=== PATIENT | male | born 1970 | race Caucasian/White ===

== ENCOUNTER → 2020-12-26 | Outpatient (CLI) | payer OTHER ==
--- NOTE | 2020-12-27 04:45 | MR ---
EXAMINATION TYPE: MR knee RT wo con DATE OF EXAM: 12/26/2020 COMPARISON: None HISTORY: Right inner knee pain, locking, and swelling for 6 months. Multiplanar multiecho imaging of the right knee with no contrast. There is horizontal and vertical tear through the posterior horn of the medial meniscus. There is lar ge vertical tear through the posterior horn of the lateral meniscus. There is some mild thinning of t he anterior horn lateral meniscus. The anterior and posterior cruciate ligaments are intact. There is mild knee joint effusion. The elvie ateral ligaments are intact. There is no evidence of a fracture. I see no bony destructive process. T here are small areas of increased signal in the subchondral patella consistent with developing degene rative cyst formation. IMPRESSION: There are tears of the medial and lateral menisci as above. No fracture. No evidence of ligamentous t ear. Knee joint effusion.
== END | disposition home or self-care (01) ==
LOC: RADMRIMAIN 14:44
PROVIDERS: ATTEND Orthopaedic Surgery Sports Medicine
DX: M23.321 Other meniscus derangements, posterior horn of medial meniscus, right knee (principal); M23.351 Other meniscus derangements, posterior horn of lateral meniscus, right knee

== ENCOUNTER → 2023-01-19 | Outpatient (CLI) | payer OTHER ==
--- NOTE | 2023-01-22 13:39 | MR ---
EXAMINATION TYPE: MR knee LT wo con DATE OF EXAM: 01/19/2023 COMPARISON: None HISTORY: Left knee pain. TECHNIQUE: Multiplanar, multisequence imaging of the left knee is performed without IV contrast. 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 The overlying cartilage is intac t. There is mild hypertrophic spurring. The lateral compartment is normal with normal cartilage thick ness and signal intensity there are mild degenerative changes of the medial facet of the patellofemor al joint with loss of cartilage and subchondral changes. There is a small joint effusion. The cruciate and collateral ligaments are intact. There is a horizontal/oblique tear of the posterior and body medial and the inferior surface. The lateral meniscus is intact. Quadriceps and patellar. IMPRESSION: 1. Tear of the medial meniscus as described above. 2. small joint effusion. 3. Mild degenerative changes of the patellofemoral compartment as described above. 4. No bone contusion or fracture. 5. No ligamentous abnormalities.
== END | disposition home or self-care (01) ==
LOC: RADMRIMAIN 06:34
PROVIDERS: ATTEND Orthopaedic Surgery Sports Medicine
DX: S83.242A Other tear of medial meniscus, current injury, left knee, initial encounter (principal); M25.462 Effusion, left knee; M17.12 Unilateral primary osteoarthritis, left knee